=== PATIENT | female | born 1965 | race Caucasian/White ===

== ENCOUNTER 2022-09-04 22:04 | Emergency (ER) | payer MEDICAID ==
[2022-09-04] MEDS ORDERED: Ketorolac 30 MG/ML SDV IVPUSH ONE (23:07)
[2022-09-04] MEDS ORDERED: Sodium Chloride 0.9% 10 ML Syringe FLUSH PRN (23:07)
[2022-09-04 23:37] LABS: ESTIMATED GFR 75 mL/min (>60)
[2022-09-05] MEDS ORDERED: Iopamidol 612 MG/ML 100 ML Bottle IV STA (00:08)
[2022-09-05] MEDS ORDERED: Sodium Chloride 0.9% 50 ML IV STA (00:09)
[2022-09-05] MEDS ORDERED: Polyethylene Glycol 3350 Powder 17 GM Packet PO ONE (01:02)
[2022-09-05] MEDS ORDERED: Aluminum Hydroxide/Magnesium Hydroxide/Simethicone Susp 30 ML Cup PO STA (01:02)
== END 2022-09-05 01:18 | disposition home or self-care (01) ==
LOC: JP.ED 22:04
DX: K59.01 Slow transit constipation (principal); K80.20 Calculus of gallbladder without cholecystitis without obstruction; R14.3 Flatulence; R14.0 Abdominal distension (gaseous); E03.9 Hypothyroidism, unspecified; Z87.891 Personal history of nicotine dependence; Z79.899 Other long term (current) drug therapy
CPT/HCPCS: 36415; 74177; 80053; 81001; 83690; 85025; 96374; 99284; A9270; J1885; J3490; Q9967